=== PATIENT | female | born 2000 | race Hispanic/Latino ===

== ENCOUNTER 2019-10-29 14:30 | Emergency (ER) | payer BC ==
[2019-10-29 15:32] LABS: #Basophils 0.1 thou/uL (0.0-0.2); #Eosinphils 0.1 thou/uL (0.0-0.7); #Lymphocytes 3.2 thou/uL (1.20-3.40); #Monocytes 0.6 thou/uL (0.11-0.59); #Neutrophils 5.2 thou/uL (1.40-6.50); %Basophils 0.9 % (0.0-1.0); %Eosinophils 1.3 % (0.0-10.0); %Lymphocytes 35.2 % (21.0-51.0); %Monocytes 6.1 % (0.0-10.0); %Neutrophils 56.5 % (42.0-75.0); Hemoglobin 13.4 g/dL (12.0-16.0); Mean Corpuscular HGB CONC 35.4 g/dL (32.0-36.0); Mean Corpuscular Hemoglobin 32.3 pg (27.0-31.0); Mean Corpuscular Volume 91.2 fL (78.0-98.0); Mean Platelet Volume 7.8 fL (7.4-10.4); Platelet Count 261 thou/uL (130-400); RBC Distribution Width 11.1 % (11.5-14.5); Red Blood Cell (RBC) Count 4.16 mill/uL (4.20-5.40); White Blood Cell (WBC) Count 9.2 thou/uL (4.8-10.8)
[2019-10-29 15:50] LABS: Anion Gap 11 mmol/L (10-20); BUN (Urea Nitrogen) 9 mg/dL (7.0-18.7); Calc. Creatinine Clearance 0 mL/min (70-130); Calcium 9.6 mg/dL (7.8-10.44); Carbon Dioxide 29 mmol/L (22-29); Chloride 104 mmol/L (98-107); Estimated GFR-MDRD Greater than 90; Glucose 94 mg/dL (70-105); Potassium 3.9 mmol/L (3.5-5.1); Sodium 140 mmol/L (136-145)
--- NOTE | 2019-10-29 16:53 | RAD ---
RADIOGRAPH CHEST 2 VIEWS: DATE: 10/29/2019 HISTORY: 19-year-old female with tachycardia FINDINGS: The lungs are clear. The cardiomediastinal silhouette and hilar shadows appear normal. There is no pl eural effusion or pneumothorax. No osseous abnormality is identified. IMPRESSION: Normal
--- NOTE | 2019-10-31 21:56 | EKG ---
Test Reason : PALPITATIONS Blood Pressure : / mmHG Vent. Rate : 073 BPM Atrial Rate : 073 BPM P-R Int : 138 ms QRS Dur : 078 ms QT Int : 420 ms P-R-T Axes : 055 058 037 degrees QTc Int : 462 ms Normal sinus rhythm with sinus arrhythmia Possible Left atrial enlargement Borderline ECG Confirmed by JUAN C MOREL DO ([id number]), desk editor BETHEL HAIRSTON ([id number]) on 10/31/2019 9:54:55 PM Referred By: Confirmed By:JUAN C MOREL DO
== END 2019-10-29 16:57 | disposition home or self-care (01) ==
LOC: ERS 14:30
DX: F41.9 Anxiety disorder, unspecified (principal)
CPT/HCPCS: 36415; 71046; 80048; 85025; 93005